=== PATIENT | male | born 1940 | race Caucasian/White ===

== ENCOUNTER → 2018-07-08 | Outpatient (CLI) | payer MEDICARE, OTHER ==
--- NOTE | 2018-07-08 12:26 | KCIC ---
Renal ultrasound 07/08/2018 INDICATION: Posttraumatic urethral stricture COMPARISON STUDY: None FINDINGS: Right kidney is unremarkable in appearance measuring 11.4 cm in length. Left kidney is normal in appearance measuring 13.6 cm in length. No hydronephrosis, nephrolithiasis, or focal renal lesion is seen involving either kidney.Prevoid bladder volume 192 cc. No focal sonographic abnormality of the bladder is identified. Post void bladder volume, minimal estimated 2 to 3 cc. Impression: Normal sonographic appearance of the kidneys. Electronically signed by: Luis Santa MD (07/08/2018 12:23 PM) [id number]
== END | disposition home or self-care (01) ==
LOC: KCIC US 10:45
PROVIDERS: ATTEND Urology
DX: N35.011 Post-traumatic bulbous urethral stricture (principal)
CPT/HCPCS: 76770